=== PATIENT | male | born 1965 | race African-American/Black ===

== ENCOUNTER → 2016-12-17 | Emergency (ER) | payer BC ==
[~2016-12-17] MED LIST: CEFAZOLIN (PRE-DOCKED) 50 ML IVPB ONE; CEFAZOLIN 2 GM in DEXTROSE 5%-WATER - 50 ML IVPB ONE; IBUPROFEN 400 MG TABLET (FP) PO ONE; IBUPROFEN 600 MG TABLET (FP) PO ONE
--- NOTE | 2016-12-17 18:25 | PDOC ---
Rapid Medical Evaluation Medical Evaluation: Allergies Allergy/AdvReac Type Severity Reaction Status Date / Time No Known Allergies Allergy Verified 03/29/13 19:08 12/17/16 18:23 51 year old male with a history of HTN presents with right leg pain and swelling. Had outpatient u/s yesterday which was positive for DVT. Was placed on Xarelto by PCP. No chest pain or SOB. -To Main ED for further evaluation
[2016-12-17 18:27] VITALS: BP 132/85; PULSE 100; TEMP 98.1; BMI 30.1
[2016-12-17 19:49] LABS: BASOPHIL 0.9 % (0-2.0); EOSINOPHIL 2.7 % (0-4.5); MCH 29.3 pg (25.7-33.7); MCHC 33.4 g/dl (32.0-35.9); MEAN CELL VOLUME 87.8 fl (80-96); MEAN PLT VOLUME 8.3 fl (7.5-11.1); PLATELET COUNT 167 K/MM3 (134-434); RDW 13.2 % (11.9-15.9); WHITE BLOOD COUNT 11.4 K/mm3 (4.0-10.0)
--- NOTE | 2016-12-17 21:11 | PDOC ---
History of Present Illness - General History Source: Patient Exam Limitations: No Limitations - History of Present Illness Initial Comments: 12/17/16 21:29 Patient is a 51 year old male with a significant medical history of HTN who presents to the ED with right calf pain. Patient notes that he had right lower extremity US yesterday with a positive DVT and was placed on Xarelto. He states that he completed his second dose of Xarelto today. He notes that the pain has progressively worsened that is why he presented to the ED. 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 He denies fever, chills, nausea, vomiting, diarrhea or constipation. <Kenyatta Roque - Last Filed: 12/17/16 21:29> <Radha Bueno - Last Filed: 12/17/16 21:44> - General Chief Complaint: Pain Stated Complaint: BLOOD CLOT ON RT LEG Time Seen by Provider: 12/17/16 18:25 Past History <Kenyatta Roque - Last Filed: 12/17/16 21:29> - Past Medical History HTN: Yes - Immunization History TDAP Vaccination: No Immunization Up to Date: No - Psycho/Social/Smoking Cessation Hx Anxiety: No Suicidal Ideation: No Smoking Status: No Smoking History: Never smoked Have you smoked in the past 12 months: No Number of Cigarettes Smoked Daily: 0 Information on smoking cessation initiated: No Hx Alcohol Use: No Drug/Substance Use Hx: No Substance Use Type: None Hx Substance Use Treatment: No <Radha Bueno - Last Filed: 12/17/16 21:44> - Past Medical History Allergies/Adverse Reactions: Allergies Allergy/AdvReac Type Severity Reaction Status Date / Time No Known Allergies Allergy Verified 12/17/16 18:23 Home Medications: Ambulatory Orders Cephalexin Monohydrate [Keflex -] 500 mg PO Q6H #20 capsule 12/17/16 Lisinopril [Prinivil] 5 mg PO DAILY 12/17/16 Rivaroxaban [Xarelto -] 15 mg PO BID 12/17/16 Review of Systems - Review of Systems Able to Perform ROS?: Yes Comments:: 12/17/16 21:30 CONSTITUTIONAL: Absent: fever, chills, diaphoresis, generalized weakness, malaise, loss of appetite HEENT: Absent: rhinorrhea, nasal congestion, throat pain, throat swelling, difficulty swallowing, mouth swelling, ear pain, eye pain, visual Changes CARDIOVASCULAR: Absent: chest pain, syncope, palpitations, irregular heart rate, lightheadedness , peripheral edema RESPIRATORY: Absent: cough, shortness of breath, dyspnea with exertion, orthopnea, wheezing, stridor, hemoptysis GASTROINTESTINAL: Absent: abdominal pain, abdominal distension, nausea, vomiting, diarrhea, constipation, melena, hematochezia GENITOURINARY: Absent: dysuria, frequency, urgency, hesitancy, hematuria, flank pain, genital pain MUSCULOSKELETAL: Present: right calf pain. Absent: myalgia, arthralgia, joint swelling SKIN: Absent: rash, itching, pallor HEMATOLOGIC/IMMUNOLOGIC: Absent: easy bleeding, easy bruising, lymphadenopathy, frequent infections ENDOCRINE: Absent: unexplained weight gain, unexplained weight loss, heat intolerance, cold intolerance NEUROLOGIC: Absent: headache, focal weakness or paresthesias, dizziness, unsteady gait, seizure, mental status changes, bladder or bowel incontinence PSYCHIATRIC: Absent: anxiety, depression, suicidal or homicidal ideation, hallucinations. <Kenyatta Roque - Last Filed: 12/17/16 21:29> *Physical Exam - Vital Signs Last Vital Signs Temp Pulse Resp BP Pulse Ox 98.1 F 100 H 20 132/85 97 12/17/16 18:24 12/17/16 18:24 12/17/16 18:24 12/17/16 18:24 12/17/16 18:24 - Physical Exam Comments: 12/17/16 21:30 GENERAL: Well developed, well nourished. Awake and alert. No acute distress. HEENT: Normocephalic, atraumatic. PERRLA, EOMI. No conjunctival pallor. Sclera are non- icteric. Moist mucous membranes. Oropharynx is clear. NECK: Supple. Full ROM. No JVD. Carotid pulses 2+ and symmetric, without bruits. No thyromegaly. No lymphadenopathy. CARDIOVASCULAR: Regular rate and rhythm. No murmurs, rubs, or gallops. Distal pulses are 2+ and symmetric. PULMONARY: No evidence of respiratory distress. Lungs clear to auscultation bilaterally. No wheezing, rales or rhonchi. ABDOMINAL: Soft. Non-tender. Non-distended. No rebound or guarding. No organomegaly. Normoactive bowel sounds. MUSCULOSKELETAL Normal range of motion at all joints. No bony deformities or tenderness. No CVA tenderness. EXTREMITIES: +Increasing pain over DVT, warm to touch. No cyanosis. No clubbing. No edema. SKIN: Warm and dry. Normal capillary refill. No rashes. No jaundice. NEUROLOGICAL: Alert, awake, appropriate. Cranial nerves 2-12 intact. No deficits to light touch and temperature in face, upper extremities and lower extremities. No motor deficits in the in face, upper extremities and lower extremities. Normoreflexic in the upper and lower extremities. Normal speech. PSYCHIATRIC: Cooperative. Good eye contact. Appropriate mood and affect. <Kenyatta Roque - Last Filed: 12/17/16 21:29> - Vital Signs Last Vital Signs Temp Pulse Resp BP Pulse Ox 98.1 F 100 H 20 132/85 97 12/17/16 18:24 12/17/16 18:24 12/17/16 18:24 12/17/16 18:24 12/17/16 18:24 <Radha Bueno - Last Filed: 12/17/16 21:44> ED Treatment Course - LABORATORY CBC & Chemistry Diagram: 12/17/16 19:43 12/17/16 19:40 - ADDITIONAL ORDERS Additional order review: Laboratory Results 12/17/16 19:40 Sodium Cancelled Potassium Cancelled Chloride Cancelled Carbon Dioxide Cancelled Anion Gap Cancelled BUN Cancelled Creatinine Cancelled Creat Clearance w eGFR Cancelled Random Glucose Cancelled Calcium Cancelled Total Bilirubin Cancelled AST Cancelled ALT Cancelled Alkaline Phosphatase Cancelled Total Protein Cancelled Albumin Cancelled 12/17/16 19:43 RBC 5.24 MCV 87.8 MCHC 33.4 RDW 13.2 MPV 8.3 Neutrophils % 54.0 D Lymphocytes % 31.2 D Monocytes % 11.2 H Eosinophils % 2.7 D Basophils % 0.9 - Medications Given in the ED: ED Medications Discontinued Medications Generic Name Dose Route Start Last Admin Trade Name Freq PRN Reason Stop Dose Admin Cefazolin Sodium 2 gm/ 50 mls @ 100 mls/hr 12/17/16 19:31 12/17/16 19:49 Dextrose IVPB 12/17/16 20:00 100 mls/hr ONCE ONE Administration <Kenyatta Roque - Last Filed: 12/17/16 21:29> - LABORATORY CBC & Chemistry Diagram: 12/17/16 19:43 12/17/16 20:15 - ADDITIONAL ORDERS Additional order review: Laboratory Results 12/17/16 19:40 Sodium Cancelled Potassium Cancelled Chloride Cancelled Carbon Dioxide Cancelled Anion Gap Cancelled BUN Cancelled Creatinine Cancelled Creat Clearance w eGFR Cancelled Random Glucose Cancelled Calcium Cancelled Total Bilirubin Cancelled AST Cancelled ALT Cancelled Alkaline Phosphatase Cancelled Total Protein Cancelled Albumin Cancelled 12/17/16 19:43 RBC 5.24 MCV 87.8 MCHC 33.4 RDW 13.2 MPV 8.3 Neutrophils % 54.0 D Lymphocytes % 31.2 D Monocytes % 11.2 H Eosinophils % 2.7 D Basophils % 0.9 - Medications Given in the ED: ED Medications Discontinued Medications Generic Name Dose Route Start Last Admin Trade Name Freq PRN Reason Stop Dose Admin Cefazolin Sodium 2 gm/ 50 mls @ 100 mls/hr 12/17/16 19:31 12/17/16 19:49 Dextrose IVPB 12/17/16 20:00 100 mls/hr ONCE ONE Administration <Radha Bueno - Last Filed: 12/17/16 21:44> Medical Decision Making - Medical Decision Making 12/17/16 21:12 this 51 yo male was recently diagnosed with DVT in his rt leg and he has been taking xarelto for the clot -he came to the ER because he was concerned that his rt leg was hurting more that it had when he was diagnosed 2 days ago -he denies any recent trauma his PCP Dr Rahul West [facility] HTN -social -he states that 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 <Kenyatta Roque - Last Filed: 12/17/16 21:29> <Radha Bueno - Last Filed: 12/17/16 21:44> Diagnosis at time of Disposition: Right leg pain, History of DVT of lower extremity - Discharge Dispostion Disposition: HOME Condition at time of disposition: Stable - Prescriptions Prescriptions: Cephalexin Monohydrate [Keflex -] 500 mg PO Q6H #20 capsule - Referrals Referrals: STAFF,NOT ON [Primary Care Provider] - - Patient Instructions Printed Discharge Instructions: DI for Leg Pain, DI for Cellulitis -- Adult Additional Instructions: please continue to take your medication for your blood clot please pecan picker your prescription at [facility] follow up with your regular physician
[2016-12-17 21:31] LABS: ALBUMIN 3.5 g/dl (3.4-5.0); BILIRUBIN,TOTAL 0.3 mg/dL (0.2-1.0); CALCIUM 9.1 mg/dL (8.5-10.1); CREATININE 1.4 mg/dL (0.7-1.3); TOT PROT 7.2 g/dl (6.4-8.2)
== END | disposition home or self-care (01) ==
LOC: JER 18:17
DX: I82.401 Acute embolism and thrombosis of unspecified deep veins of right lower extremity (principal); Z79.01 Long term (current) use of anticoagulants; I10 Essential (primary) hypertension
CPT/HCPCS: 36415; 80053; 85025; 99283-25

== ENCOUNTER 2019-05-19 09:17 | Emergency (ER) | payer SELFPAY ==
[2019-05-19 09:24] VITALS: BP 145/87; PULSE 75; TEMP 98.2; BMI 27.8
--- NOTE | 2019-05-19 10:09 | PDOC ---
History of Present Illness - General Chief Complaint: Injury Stated Complaint: LACERATION ABOVE CHIN Time Seen by Provider: 05/19/19 09:28 History Source: Patient - History of Present Illness Occurred: reports: this morning Pain Location: reports: face Past History - Past Medical History Allergies/Adverse Reactions: Allergies Allergy/AdvReac Type Severity Reaction Status Date / Time No Known Allergies Allergy Verified 05/19/19 09:24 Home Medications: Ambulatory Orders Cephalexin Monohydrate [Keflex -] 500 mg PO Q6H #20 capsule 12/17/16 Lisinopril [Prinivil] 5 mg PO DAILY 12/17/16 Rivaroxaban [Xarelto -] 15 mg PO BID 12/17/16 Cephalexin [Keflex] 500 mg PO Q6H #28 capsule 05/19/19 COPD: No HTN: Yes - Immunization History TDAP Vaccination: No Immunization Up to Date: No - Suicide/Smoking/Psychosocial Hx Smoking Status: No Smoking History: Never smoked Have you smoked in the past 12 months: No Number of Cigarettes Smoked Daily: 0 Information on smoking cessation initiated: No Hx Alcohol Use: No Drug/Substance Use Hx: No Substance Use Type: None Hx Substance Use Treatment: No Review of Systems - Review of Systems Integumentary: Yes: Other (lacerations) *Physical Exam - Vital Signs Last Vital Signs Temp Pulse Resp BP Pulse Ox 98.2 F 75 19 145/87 100 05/19/19 09:21 05/19/19 09:21 05/19/19 09:21 05/19/19 09:21 05/19/19 09:21 - Physical Exam General Appearance: Yes: Appropriately Dressed. No: Apparent Distress HEENT: positive: Other (~1 cm mucosal lac to lower lip w/ ~3-4mm lac to chin crease, wound does not appear to go through and through, no vermilion border involvement). negative: Normal Voice Neck: positive: Supple Respiratory/Chest: negative: Respiratory Distress Integumentary: positive: Dry, Warm Neurologic: positive: Fully Oriented, Alert, Normal Mood/Affect Procedures - Laceration/Wound Repair Face Wound Length: to 2.5 cm Irrigated w/ Saline: Yes Betadine Prep: Yes Anesthesia: 1% Lidocaine Amount of Anesthetic (ccs): 6 Wound Repaired With: Sutures Suture Size/Type: other (intraoral lac repaired w/ 6 0 vicryl, chin lac reapired w/ 6 0 nylon) Number of Sutures: 7 (5 intra-oral lac, 2 chin lac) Sterile Dressing Applied: No Medical Decision Making - Medical Decision Making 05/19/19 12:04 53 yo M, no sig hx, here w/ facial injury s/p fall this am. Pt works as a security patrol officer and this morning while standing at a counter, he began falling asleep and lost his balance, striking her mouth against counter. No POOLE, dizziness, n/v or LOC see exam Lac repair Multiple lacs involving mucosal aspect of lower lip and to chin crease, no through and through lac -tetanus UTD -started on keflex given significant mucosal involvement -wound check in 2 days *DC/Admit/Observation/Transfer Diagnosis at time of Disposition: Lip laceration Qualifiers: Encounter type: initial encounter Qualified Code(s): S01.511A - Laceration without foreign body of lip, initial encounter - Discharge Dispostion Disposition: HOME Condition at time of disposition: Improved - Prescriptions Prescriptions: Cephalexin [Keflex] 500 mg PO Q6H #28 capsule - Referrals - Patient Instructions Printed Discharge Instructions: DI for Laceration Repair Additional Instructions: Regarding your intra-oral laceration, eat soft foods for 2-3 days and rinse the mouth with water after eating. Avoid spicy or salty foods until the wound is healed. Avoid use of straws. Return to the ED in 2 days for reassessment. Take antibiotics as directed. Regarding the laceration on your chin, keep dry for the next 24 hours after which you can let water run over wound. Stitches in your chin needs to be removed in 5 days - Post Discharge Activity Forms/Work/School Notes: Back to Work
== END 2019-05-19 10:00 | disposition home or self-care (01) ==
LOC: JERFT 09:17
PROC: 0HQ1XZZ Repair Face Skin, External Approach (ICD-10-PCS; principal; 2019-05-19)
PROC: 0CQ1XZZ Repair Lower Lip, External Approach (ICD-10-PCS; 2019-05-19)
DX: S01.511A Laceration without foreign body of lip, initial encounter (principal); S01.81XA Laceration without foreign body of other part of head, initial encounter; W18.39XA Other fall on same level, initial encounter; Y93.89 Activity, other specified; Y92.89 Other specified places as the place of occurrence of the external cause; Y99.0 Civilian activity done for income or pay
CPT/HCPCS: 99281-25

== ENCOUNTER 2019-05-24 08:44 | Emergency (ER) | payer SELFPAY ==
[2019-05-24 08:51] VITALS: BP 131/80; PULSE 71; TEMP 98.1; BMI 29.2
--- NOTE | 2019-05-24 09:29 | PDOC ---
Suture Removal/Wound Check HPI - History of Present Illness Chief Complaint: Suture/Staple Removal(Here) Stated Complaint: STITCHES REMOVAL Time Seen by Provider: 05/24/19 08:50 History Source: Yes: Patient Exam Limitations: Yes: No Limitations Treated at: [facility] ED - Previous ED Treatment Type of procedure performed on last visit: Yes: Laceration Repair Tetanus Immunization: Yes: Up to Date Past History - Travel Traveled outside of the country in the last 30 days: No Close contact w/someone who was outside of country & ill: No - Past Medical History Allergies/Adverse Reactions: Allergies Allergy/AdvReac Type Severity Reaction Status Date / Time No Known Allergies Allergy Verified 05/24/19 08:51 Home Medications: Ambulatory Orders Lisinopril [Prinivil] 5 mg PO DAILY 12/17/16 Rivaroxaban [Xarelto -] 15 mg PO BID 12/17/16 COPD: No HTN: Yes - Immunization History TDAP Vaccination: No Immunization Up to Date: No - Suicide/Smoking/Psychosocial Hx Smoking Status: No Smoking History: Never smoked Have you smoked in the past 12 months: No Number of Cigarettes Smoked Daily: 0 Information on smoking cessation initiated: No Hx Alcohol Use: No Drug/Substance Use Hx: No Substance Use Type: None Hx Substance Use Treatment: No Suture Removal/Wound Check PE - Physical Exam Laceration/Wound Check Symptoms: reports: None Current Severity Level: None Maximum Severity Level: None Pain Localization: None *Review of Systems - Review of Systems Able to Perform ROS?: Yes Constitutional: Yes: Symptoms Reported, See HPI, Malaise. No: Fever Respiratory: No: Symptoms reported Integumentary: Yes: Symptoms Reported, See HPI, Other (2 sutures to external area/ 1 remains= no complaints of pain or swelling ) Neurological: No: Symptoms reported All Other Systems: Reviewed and Negative *Physical Exam - Vital Signs Last Vital Signs Temp Pulse Resp BP Pulse Ox 98.1 F 71 18 131/80 100 05/24/19 08:50 05/24/19 08:50 05/24/19 08:50 05/24/19 08:50 05/24/19 08:50 - Physical Exam General Appearance: Yes: Nourished, Appropriately Dressed. No: Apparent Distress HEENT: positive: INÉS, Normal ENT Inspection, TMs Normal, Pharynx Normal, Other (inner gingival surface well approximated / no retained sutres noted ) Medical Decision Making - Medical Decision Making 05/24/19 15:20 One suture removed from sub-mental area= wound well approximated without redness swelling or evidence of dehiscence *DC/Admit/Observation/Transfer Diagnosis at time of Disposition: Visit for suture removal - Discharge Dispostion Disposition: HOME Condition at time of disposition: Stable Decision to Admit order: No - Referrals - Patient Instructions Printed Discharge Instructions: DI for Suture Removal - Post Discharge Activity
== END 2019-05-24 09:51 | disposition home or self-care (01) ==
LOC: JERFT 08:44
DX: Z48.817 Encounter for surgical aftercare following surgery on the skin and subcutaneous tissue (principal); Z48.02 Encounter for removal of sutures
CPT/HCPCS: 99281-25

== ENCOUNTER 2020-04-21 07:41 | Emergency (ER) | payer BC, OTHER ==
[2020-04-21 07:53] VITALS: BMI 29.4
--- NOTE | 2020-04-21 08:25 | PDOC ---
History of Present Illness - General Chief Complaint: Chest Pain Stated Complaint: CHEST PAIN Time Seen by Provider: 04/21/20 08:05 History Source: Patient Exam Limitations: No Limitations - History of Present Illness Initial Comments: 54M with hx/o HTN and DVT presents to the ED with left-sided CP on exertion with left arm radiation, unable to describe pain and lasted ~1hr. He had a short episode of CP a few days ago on exertion, otherwise has no hx/o CP. Denies associated diaphoresis, SOB, nausea, vomiting, lightheadedness, or abdominal pain. He has not had recent surgery or trauma. PMH: as in HPI SH: none Meds: Lisinopril Allergies: NKDA Tob/Etoh/Rec drugs: occasional cannabis ROS GENERAL/CONSTITUTIONAL: No fever or chills. No weakness HEENT: No change in vision. No sore throat CARDIOVASCULAR: +chest pain, no shortness of breath RESPIRATORY: No cough, wheezing, or hemoptysis GASTROINTESTINAL: No nausea, vomiting, diarrhea or constipation GENITOURINARY: No dysuria, frequency, or change in urination MUSCULOSKELETAL: No joint or muscle swelling or pain. No neck or back pain NEUROLOGIC: No headache, vertigo, loss of consciousness, or change in strength/sensation ENDOCRINE: No increased thirst. No abnormal weight change HEMATOLOGIC/LYMPHATIC: No anemia, easy bleeding; +history of blood clots ALLERGIC/IMMUNOLOGIC: No hives or skin allergy PE GENERAL: Awake, alert, and fully oriented, no acute distress HEAD: No signs of trauma, normocephalic, atraumatic EYES: PERRLA, EOMI, sclera anicteric, conjunctiva clear ENT: Auricles normal inspection, hearing grossly normal, nares patent, oropharynx clear without exudates. Moist mucosa NECK: Normal ROM, supple, no lymphadenopathy, JVD, or masses HEART: Regular rate and rhythm, normal S1 and S2, no murmurs, rubs or gallops, peripheral pulses normal and equal bilaterally CHEST WALL: no reproducible chest pain LUNGS: No distress, speaks full sentences, clear to auscultation bilaterally ABDOMEN: Soft, nontender, normoactive bowel sounds. No guarding, no rebound. No masses EXTREMITIES: Normal inspection, Normal range of motion, no edema. No clubbing or cyanosis NEUROLOGICAL: CNII-XII grossly intact. Normal speech, normal gait, no focal sensorimotor deficits SKIN: Warm, Dry, normal turgor, no rashes or lesions noted Assessment and Plan 1. R/o ACS - troponin, EKG, CXR, ASA 324mg 2. PE - low risk Well's Score, +PERC; d-dimer 3. Tension pneumo - low suspicion due to equal bilateral breath sounds Andrew Nava, PGY1 Emergency Medicine 04/21/20 13:21 Past History - Medical History Allergies/Adverse Reactions: Allergies Allergy/AdvReac Type Severity Reaction Status Date / Time No Known Allergies Allergy Verified 05/24/19 08:51 Home Medications: Ambulatory Orders Lisinopril [Prinivil] 5 mg PO DAILY 12/17/16 COPD: No HTN: Yes - Immunization History TDAP Vaccination: No Immunization Up to Date: No - Psycho-Social/Smoking History Smoking Status: No Smoking History: Never smoked Have you smoked in the past 12 months: No Number of Cigarettes Smoked Daily: 0 Information on smoking cessation initiated: No - Substance Abuse Hx (Audit-C & DAST Scrn) How often the patient has a drink containing alcohol: Never Score: In Men: 4 or > Positive; In Women: 3 or > Positive: 0 Screen Result (Pos requires Nsg. Audit-10AR): Negative *Physical Exam - Vital Signs Last Vital Signs Temp Pulse Resp BP Pulse Ox 98.1 F 84 17 141/76 99 04/21/20 07:49 04/21/20 07:49 04/21/20 07:49 04/21/20 07:49 04/21/20 07:49 Heart Score/ECG Review - History History: Highly suspicious - Age Age: 45-65 - Risk Factors Risk Factors Heart Score: Yes Hx Hypertension ED Treatment Course - LABORATORY CBC & Chemistry Diagram: 04/21/20 08:45 04/21/20 08:45 Medical Decision Making - Medical Decision Making 54M with hx/o HTN and DVT presents to the ED with left-sided CP on exertion with left arm radiation, without SOB, n/v, diaphoresis. Physical exam unremarkable. Differential includes but is not limited to [place], angina, PE, and tension pneumothorax. PE, unlikely with low risk Well's Score, but +PERC. D-dimer negative. CXR negative. CBC unremarkable. ACS r/o: first troponin negative. repeat troponin negative. EKG demonstrated regular rate, rhythm, and axis, without ST elevation/depression or T-wave abnormalities. Repeat EKG was consistent with the first. Unlikely currently ACS, however, may be atypical chest pain and patient was advised to follow up with cardiology. He reported feeling improved, and is stable for discharge at this time. Discharge - Discharge Information Problems reviewed: Yes Clinical Impression/Diagnosis: History of DVT of lower extremity Chest pain Qualifiers: Chest pain type: unspecified Qualified Code(s): R07.9 - Chest pain, unspecified Condition: Stable Disposition: HOME - Admission No - Follow up/Referral Referrals: Sergei Escamilla MD [Primary Care Provider] - Chente Dobbins MD [Staff Physician] - Joe Mehta MD [Staff Physician] - Jim Jonas MD [Staff Physician] - - Patient Discharge Instructions Patient Printed Discharge Instructions: DI for Atypical Chest Pain, DI for Chest Pain Additional Instructions: You came into the ED because of chest pain this morning. We did blood work, an electrocardiogram (EKG), and chest xray. The work up was negative and did not suggest the chest pain was cardiac in nature. Return to the ED if your chest pain worsens, continues with activity, or you feel nausea/vomiting, or sweating. Follow up with your PCP and a grab setter within a week. - Post Discharge Activity
[2020-04-21] MEDS ORDERED: ASPIRIN 81 MG CHEWABLE TABLETS PO ONE (08:26)
[2020-04-21] MEDS ORDERED: ASPIRIN 325 MG ENTERIC COATED TABLET (FP) ONE (08:34)
--- NOTE | 2020-04-21 08:41 | PDOC ---
Attending Attestation - Resident Resident Name: Andrew Nava - ED Attending Attestation I have performed the following: I have examined & evaluated the patient, The case was reviewed & discussed with the resident, I agree w/resident's findings & plan - HPI HPI: 04/21/20 08:40 54M with hx/o HTN and DVT presents to the ED with left-sided CP on exertion with left arm radiation?, after intercourse this morning at 5AM; unable to describe pain and lasted ~1hr. he states it occurs in his armpit, maybe with left inner arm pain that is separate. He had a short episode of CP a few days ago on exertion, otherwise has no hx/o CP. Denies associated diaphoresis, SOB, nausea, vomiting, lightheadedness, or abdominal pain. He has not had recent surgery or trauma. 04/21/20 13:39 04/21/20 13:41 - Physicial Exam PE: 04/21/20 08:40 Agree with the resident's HPI and PE as documented in the electronic medical record. NAD, well appearing, EOMI, PERRL, nl conjunctiva, anicteric; neck supple. lungs clear, RRR, abdomen soft nontender. no rebound, guarding. Back nontender. WORLEY x4, no focal neuro deficits. No peripheral edema. normal color for ethnicity, WWP. no calf tenderness. no reproducible chest tenderness 04/21/20 13:40 - Medical Decision Making 04/21/20 08:40 Vital Signs Temp Pulse Resp BP Pulse Ox 98.1 F 84 17 141/76 99 04/21/20 07:49 04/21/20 07:49 04/21/20 07:49 04/21/20 07:49 04/21/20 07:49 vitals reviewed, wnl DDx chest pain: ACS, coronary vasospasm, NSTEMI, arrhythmia, unstable angina, PE, dissection, PUD, esophageal spasm, GERD, gastritis, costochondritis, pneumonia, pleurisy, pericarditis/myocarditis. dehydration, electrolyte/metabolic derangements. Considered but clinically doubt based on HPI and PE: Low suspicion for pulmonary embolism or dissection. Interpreted by ED Physician: CXR (1 view): no acute abnormality: no infiltrates, bones appear intact and structures normal alignment, cardiac silhouette within normal limits. no free air under diaphragm, no pneumothorax. EKG normal sinus rhythm, no interval abnormalities, narrow QRS, ST and T wave segments and morphology normal. Nonspecific T wave abnormalities, unchanged from prior Chest pain HEART score 3 which denotes Low risk and probability for ACS, less than 1.7% risk for MACE at 4-6 wks dimer is neg, reassuring - unlikely PE trop neg x 2, rpt EKG is unchanged. NSR. remainder of labs and lytes wnl No evidence of ACS, pericarditis, myocarditis, pulmonary embolism, pneumothorax, pneumonia, Zoster, or esophageal perforation. Historically not abrupt in onset, tearing or ripping, pulses symmetric, no evidence of aortic dissection. Pt to be discharged in stable condition. Patient made aware of clinical impression, treatment recommendations and disposition plan, return precautions discussed (including but not limited to new or persistent/worsening symptoms, pain, fevers, or signs of infection, chest pain, respiratory distress, inability to tolerate oral intake, dehydration, syncope, or neurologic changes). Follow up with PMD and/or cards specialist as recommended, follow up information provided, take medications as instructed for duration of time. continue with supportive care, avoid triggers and precipitants. All questions answered to patient's satisfaction and expressed understanding and comfort with this. At the time of discharge, the patient is alert, clinically improved, tolerating po and verbalizes understanding of instructions, satisfied with the care received and felt comfortable with the plan. Patient does not suffer from an acute life- threatening medical condition at this time and is safe for outpatient follow- up. 04/21/20 08:41 04/21/20 13:36 04/21/20 13:41 Heart Score/ECG Review - History History: Slightly suspicious - Electrocardiogram EKG: Non specific repolarization disturbance - Age Age: 45-65 - Risk Factors Risk Factors Heart Score: Yes Hx Hypertension Based on the list above the patient has:: 1-2 risk factors - Troponin Troponin: </= normal limit - Score Heart Score - Total: 3 #1 ECG reviewed & interpreted by me at: 08:00 General ECG Interpretation: Sinus Rhythm, Normal Rate, Normal Intervals 04/21/20 08:41 EKG normal sinus rhythm 83 bpm, no interval abnormalities, narrow QRS, ST and T wave segments and morphology normal. Nonspecific T wave abnormalities with T wave inversions in lead III and flattening in aVF #2 ECG reviewed & interpreted by me at: 11:50 General ECG Interpretation: Sinus Rhythm, Normal Rate, Normal Intervals 04/21/20 13:38 EKG normal sinus rhythm at 67 bpm, no interval abnormalities, narrow QRS, ST and T wave segments and morphology normal. Nonspecific T wave abnormalities like TWI in III, flattening in AVF Discharge - Discharge Information Problems reviewed: Yes Clinical Impression/Diagnosis: History of DVT of lower extremity Chest pain Qualifiers: Chest pain type: unspecified Qualified Code(s): R07.9 - Chest pain, unspecified Condition: Stable Disposition: HOME - Admission No - Follow up/Referral Referrals: Joe Mehta MD [Staff Physician] - Sergei Escamilla MD [Primary Care Provider] - Chente Dobbins MD [Staff Physician] - - Patient Discharge Instructions Patient Printed Discharge Instructions: DI for Atypical Chest Pain, DI for Chest Pain Additional Instructions: You came into the ED because of chest pain this morning. We did blood work, an electrocardiogram (EKG), and chest xray. The work up was negative and did not suggest the chest pain was cardiac in nature. Return to the ED if your chest pain worsens, continues with activity, or you feel nausea/vomiting, or sweating. Follow up with your PCP and a it infrastructure manager within a week. - Post Discharge Activity
[2020-04-21 08:55] LABS: BASO % 0.4 % (0-2.0); EOS % 2.8 % (0-4.5); HEMATOCRIT 45.8 % (35.4-49); HEMOGLOBIN 15.4 GM/dL (11.7-16.9); LYMPH % 37.5 % (8-40); MCH 30.5 pg (25.7-33.7); MCHC 33.7 g/dl (32.0-35.9); MEAN CELL VOLUME 90.4 fl (80-96); MEAN PLT VOLUME 8.4 fl (7.5-11.1); NEUT % 49.3 % (42.8-82.8); PLATELET COUNT 171 K/MM3 (134-434); RBC 5.07 M/mm3 (4.00-5.60); RDW 13.5 % (11.9-15.9); WHITE BLOOD COUNT 8.9 K/mm3 (4.0-10.0)
[2020-04-21] MEDS ORDERED: ACETAMINOPHEN 1000 MG/100 ML VIAL (NON FORMULARY) IVPB ONE (08:58)
[2020-04-21 09:00] VITALS: PULSE 77
[2020-04-21] MEDS ORDERED: ACETAMINOPHEN INJECTION 100 ML IVPB ONE (09:15)
[2020-04-21 09:41] LABS: ALBUMIN 3.8 g/dl (3.4-5.0); ALK PHOS 67 U/L (45-117); ANION GAP 8 MMOL/L (8-16); BILIRUBIN,TOTAL 0.6 mg/dL (0.2-1); CALCIUM 9.5 mg/dL (8.5-10.1); CHLORIDE 108 mmol/L (98-107); CO2 26 mmol/L (21-32); CREATININE 1.3 mg/dL (0.55-1.3); GLUCOSE,RANDOM 114 mg/dL (74-106); POTASSIUM 3.8 mmol/L (3.5-5.1); SGOT/AST 22 U/L (15-37); SGPT/ALT 41 U/L (13-61); SODIUM 142 mmol/L (136-145); TOT PROT 7.3 g/dl (6.4-8.2)
--- NOTE | 2020-04-21 11:11 | EKG ---
Test Reason : Blood Pressure : / mmHG Vent. Rate : 083 BPM Atrial Rate : 083 BPM P-R Int : 178 ms QRS Dur : 092 ms QT Int : 372 ms P-R-T Axes : 027 005 003 degrees QTc Int : 437 ms NORMAL SINUS RHYTHM POSSIBLE ANTERIOR INFARCT , AGE UNDETERMINED ABNORMAL ECG Confirmed by JUSTINE GRAY MD ([id number]) on 04/21/2020 11:10:53 AM Referred By: Confirmed By:JUSTINE GRAY MD
[2020-04-21 14:06] VITALS: BP 133/90; TEMP 98.2
--- NOTE | 2020-04-21 15:29 | EKG ---
Test Reason : Blood Pressure : / mmHG Vent. Rate : 073 BPM Atrial Rate : 073 BPM P-R Int : 186 ms QRS Dur : 090 ms QT Int : 368 ms P-R-T Axes : 051 -04 -03 degrees QTc Int : 405 ms NORMAL SINUS RHYTHM MINIMAL VOLTAGE CRITERIA FOR LVH, MAY BE NORMAL VARIANT CANNOT RULE OUT SEPTAL INFARCT , AGE UNDETERMINED ABNORMAL ECG Confirmed by JUSTINE GRAY MD ([id number]) on 04/21/2020 3:29:25 PM Referred By: Confirmed By:JUSTINE GRAY MD
--- NOTE | 2020-04-23 17:37 | EKG ---
Test Reason : Blood Pressure : / mmHG Vent. Rate : 067 BPM Atrial Rate : 067 BPM P-R Int : 188 ms QRS Dur : 098 ms QT Int : 402 ms P-R-T Axes : 014 -03 -08 degrees QTc Int : 424 ms NORMAL SINUS RHYTHM POSSIBLE ANTERIOR INFARCT (CITED ON OR BEFORE 21-APR-2020) ABNORMAL ECG WHEN COMPARED WITH ECG OF 21-APR-2020 09:03, NO SIGNIFICANT CHANGE WAS FOUND Confirmed by MD Chasity, Zheng ([id number]) on 04/23/2020 5:36:54 PM Referred By: Confirmed By:Zheng Gaspar MD
== END 2020-04-21 14:07 | disposition home or self-care (01) ==
LOC: JER 07:41
PROC: 3E0333Z Introduction of Anti-inflammatory into Peripheral Vein, Percutaneous Approach (ICD-10-PCS; principal; 2020-04-21)
DX: R07.9 Chest pain, unspecified (principal)
CPT/HCPCS: 36415; 71045-TC-FY; 80053; 82550; 82553; 84484; 85025; 85379; 93005; 93010; 99285-25; J0131

== ENCOUNTER 2020-11-27 08:41 | Inpatient (IN) | payer BC, OTHER ==
[2020-11-27] MEDS ORDERED: DEXAMETHASONE SOD PHOSPHATE 4 MG/1 ML VIAL IVPUSH ONE (09:47)
[2020-11-27] MEDS ORDERED: DEXAMETHASONE SOD PHOSPHATE 10 MG/1 ML VIAL ONE (09:50)
[2020-11-27 10:49] LABS: VENOUS BASE EXCESS -1.7 mmol/L (-2-2); VENOUS O2 SATURATION 81.1 % (70-80); VENOUS PCO2 41.1 mmHg (38-52); VENOUS PH 7.374 (7.310-7.410)
[2020-11-27 10:51] LABS: BASO % 0.4 % (0-2.0); HEMATOCRIT 44.4 % (35.4-49); HEMOGLOBIN 15.2 GM/dL (11.7-16.9); LYMPH % 25.9 % (8-40); MCHC 34.2 g/dl (32.0-35.9); MEAN CELL VOLUME 87.6 fl (80-96); MEAN PLT VOLUME 8.5 fl (7.5-11.1); MONO % 10.4 % (3.8-10.2); NEUT % 63.3 % (42.8-82.8); PLATELET COUNT 148 K/MM3 (134-434); RBC 5.07 M/mm3 (4.00-5.60); RDW 13.2 % (11.9-15.9); WHITE BLOOD COUNT 6.7 K/mm3 (4.0-10.0)
[2020-11-27 11:00] LABS: INR 1.04 (0.83-1.09); PROTHROMBIN TIME (PATIENT) 12.6 SEC (9.7-13.0)
[2020-11-27 11:03] LABS: ACTIVATED PTT 31.7 SECONDS (25.2-36.5)
[2020-11-27 11:12] LABS: CHLORIDE 104 mmol/L (98-107); POTASSIUM 3.9 mmol/L (3.5-5.1); SODIUM 137 mmol/L (136-145)
[2020-11-27 11:16] LABS: ALBUMIN 3.6 g/dl (3.4-5.0); ANION GAP 8 MMOL/L (8-16); BLOOD UREA NITROGEN 16.9 mg/dL (7-18); CALCIUM 8.6 mg/dL (8.5-10.1); CO2 25 mmol/L (21-32); GLUCOSE,RANDOM 120 mg/dL (74-106)
[2020-11-27 11:19] LABS: BILIRUBIN,DIRECT 0.2 mg/dL (0.0-0.2); CREATININE 1.3 mg/dL (0.55-1.3); SGOT/AST 28 U/L (15-37); SGPT/ALT 37 U/L (13-61)
[2020-11-27 11:20] LABS: BILIRUBIN,TOTAL 0.8 mg/dL (0.2-1); LDH 263 U/L (87-246)
[2020-11-27 11:21] LABS: TOT PROT 7.5 g/dl (6.4-8.2)
[2020-11-27 11:22] LABS: ALK PHOS 65 U/L (45-117)
[2020-11-27] MEDS ORDERED: SODIUM CHLORIDE 1,000 ML IV SCH (12:00)
[2020-11-27] MEDS ORDERED: ENOXAPARIN NA (PORCINE) 60 MG/0.6 ML DISP.SYRIN SQ SCH (12:00)
[2020-11-27] MEDS ORDERED: guaiFENesin 200 MG/10 ML 10 ML UNIT-DOSE CUPS PO PRN (12:12)
[2020-11-27] MEDS ORDERED: ENOXAPARIN NA (PORCINE) 100 MG/1 ML DISP.SYRIN SQ ONE ×2 (12:24→22:54)
[2020-11-27] MEDS: ENOXAPARIN NA (PORCINE) 100 MG/1 ML DISP.SYRIN SQ SCH ×2 (12:28→23:12)
[2020-11-27 14:30] LABS: BLOOD UREA NITROGEN 13.8 mg/dL (7-18)
[2020-11-27 14:33] LABS: CREATININE 1.1 mg/dL (0.55-1.3)
[2020-11-27 18:19] LABS: EPI CELLS 5 /uL (0-25.1); HYALINE CASTS 3 /uL (0-3.1); URINE APPEARANCE CLEAR; URINE BACTERIA 94 /uL (0-1359); URINE BILIRUBIN NEGATIVE (NEGATIVE); URINE COLOR YELLOW; URINE GLUCOSE (UA) NEGATIVE (NEGATIVE); URINE KETONE NEGATIVE (NEGATIVE); URINE LEUK ESTERASE NEGATIVE (NEGATIVE); URINE NITRITE NEGATIVE (NEGATIVE); URINE PROTEIN 1+ (NEGATIVE); URINE RBC 41 /uL (0-23.9); URINE UROBILINOGEN 0.2 mg/dL (0.2-1.0); URINE WBC 8 /uL (0-25.8)
[2020-11-28 02:12] VITALS: BMI 29.4
[2020-11-28] MEDS: ENOXAPARIN NA (PORCINE) 100 MG/1 ML DISP.SYRIN SQ SCH ×2 (09:37→21:37)
[2020-11-28] MEDS: ZINC SULFATE 220 MG CAPSULE (FP) PO SCH (09:37)
[2020-11-28] MEDS: ASCORBIC ACID 500 MG TABLET (FP) PO SCH (09:37)
[2020-11-28] MEDS: DEXAMETHASONE SOD PHOSPHATE 10 MG/1 ML VIAL IVPUSH SCH (09:37)
[2020-11-28] MEDS: CHOLECALCIFEROL (VIT D3) 1,000 UNIT (25 MCG) TABLET PO SCH (09:37)
[2020-11-28] MEDS: FAMOTIDINE 20 MG TABLET PO SCH (09:38)
[2020-11-28 10:30] LABS: BASO % 0.1 % (0-2.0); HEMATOCRIT 42.6 % (35.4-49); HEMOGLOBIN 14.6 GM/dL (11.7-16.9); LYMPH % 17.2 % (8-40); MCH 30.1 pg (25.7-33.7); MCHC 34.3 g/dl (32.0-35.9); MEAN PLT VOLUME 8.2 fl (7.5-11.1); MONO % 5.3 % (3.8-10.2); NEUT % 77.4 % (42.8-82.8); PLATELET COUNT 151 K/MM3 (134-434); RBC 4.84 M/mm3 (4.00-5.60); RDW 13.6 % (11.9-15.9); WHITE BLOOD COUNT 10.7 K/mm3 (4.0-10.0)
[2020-11-28 10:54] LABS: ALBUMIN 3.2 g/dl (3.4-5.0); BLOOD UREA NITROGEN 21.4 mg/dL (7-18); CALCIUM 8.4 mg/dL (8.5-10.1)
[2020-11-28 10:57] LABS: CREATININE 1.4 mg/dL (0.55-1.3); PHOSPHOROUS 1.6 mg/dL (2.5-4.9)
[2020-11-28 10:59] LABS: BILIRUBIN,TOTAL 0.5 mg/dL (0.2-1); TOT PROT 7.3 g/dl (6.4-8.2)
[2020-11-28] MEDS ORDERED: REMDESIVIR 200 MG in SODIUM CHLORIDE 210 ML IVPB ONE (12:00)
[2020-11-28] MEDS ORDERED: NAPH,MB-DB/K PH,MBDB POWDER PACKET PO ONE (12:11)
[2020-11-28] MEDS ORDERED: ACETAMINOPHEN 325 MG TABLET (FP) PO PRN (15:21)
[2020-11-28] MEDS: SODIUM CHLORIDE 1,000 ML IV SCH (16:18)
[2020-11-29 09:48] LABS: POTASSIUM 4.2 mmol/L (3.5-5.1)
[2020-11-29 10:29] LABS: ALBUMIN 2.9 g/dl (3.4-5.0); CALCIUM 8.1 mg/dL (8.5-10.1); MAGNESIUM 2.1 mg/dL (1.8-2.4)
[2020-11-29 10:32] LABS: CREATININE 1.3 mg/dL (0.55-1.3); PHOSPHOROUS 2.6 mg/dL (2.5-4.9)
[2020-11-29 10:34] LABS: BILIRUBIN,TOTAL 0.5 mg/dL (0.2-1); TOT PROT 6.6 g/dl (6.4-8.2)
[2020-11-29] MEDS: DEXAMETHASONE SOD PHOSPHATE 10 MG/1 ML VIAL IVPUSH SCH (10:46)
[2020-11-29] MEDS: ENOXAPARIN NA (PORCINE) 100 MG/1 ML DISP.SYRIN SQ SCH (11:09)
[2020-11-29] MEDS: ASCORBIC ACID 500 MG TABLET (FP) PO SCH (11:09)
[2020-11-29] MEDS: CHOLECALCIFEROL (VIT D3) 1,000 UNIT (25 MCG) TABLET PO SCH (11:10)
[2020-11-29] MEDS: ZINC SULFATE 220 MG CAPSULE (FP) PO SCH (11:10)
[2020-11-29] MEDS: FAMOTIDINE 20 MG TABLET PO SCH (11:10)
[2020-11-29] MEDS ORDERED: REMDESIVIR 100 MG in SODIUM CHLORIDE 230 ML IVPB SCH (12:00)
[2020-11-29] MEDS: SODIUM CHLORIDE 1,000 ML IV SCH (12:30)
[2020-11-30 09:27] LABS: BASO % 0.1 % (0-2.0); HEMATOCRIT 41.4 % (35.4-49); HEMOGLOBIN 14.1 GM/dL (11.7-16.9); LYMPH % 14.8 % (8-40); MCH 30.2 pg (25.7-33.7); MCHC 34.2 g/dl (32.0-35.9); MEAN CELL VOLUME 88.4 fl (80-96); MEAN PLT VOLUME 8.3 fl (7.5-11.1); MONO % 8.3 % (3.8-10.2); NEUT % 76.8 % (42.8-82.8); PLATELET COUNT 197 K/MM3 (134-434); RBC 4.68 M/mm3 (4.00-5.60); RDW 13.5 % (11.9-15.9); WHITE BLOOD COUNT 9.2 K/mm3 (4.0-10.0)
[2020-11-30 09:53] LABS: ALBUMIN 2.8 g/dl (3.4-5.0); CALCIUM 8.3 mg/dL (8.5-10.1); MAGNESIUM 2.3 mg/dL (1.8-2.4)
[2020-11-30 09:56] LABS: CREATININE 1.1 mg/dL (0.55-1.3)
[2020-11-30 09:57] LABS: PHOSPHOROUS 2.4 mg/dL (2.5-4.9)
[2020-11-30 09:58] LABS: BILIRUBIN,TOTAL 0.5 mg/dL (0.2-1); TOT PROT 6.5 g/dl (6.4-8.2)
[2020-11-30] MEDS: ZINC SULFATE 220 MG CAPSULE (FP) PO SCH (09:58)
[2020-11-30] MEDS: ASCORBIC ACID 500 MG TABLET (FP) PO SCH (09:58)
[2020-11-30] MEDS: CHOLECALCIFEROL (VIT D3) 1,000 UNIT (25 MCG) TABLET PO SCH (09:58)
[2020-11-30] MEDS: FAMOTIDINE 20 MG TABLET PO SCH (09:58)
[2020-11-30] MEDS: DEXAMETHASONE SOD PHOSPHATE 10 MG/1 ML VIAL IVPUSH SCH (09:59)
[2020-11-30] MEDS ORDERED: ENOXAPARIN NA (PORCINE) 40 MG/0.4 ML DISP.SYRIN SQ SCH (10:00)
[2020-11-30] MEDS ORDERED: PT OWN MED DRAWER 7, Y5N ONE (12:05)
[2020-11-30 13:32] VITALS: BP 131/86; PULSE 71; TEMP 97.5
== END 2020-11-30 22:00 | disposition home or self-care (01) | DRG 177 ==
LOC: JER 08:41 → JERBED 11:29 → J6S 11-28 01:16
PROVIDERS: ADMIT Internal Medicine; ATTEND Student in an Organized Health Care Education/Training Program
PROC: XW033E5 Introduction of Remdesivir Anti-infective into Peripheral Vein, Percutaneous Approach, New Technology Group 5 (ICD-10-PCS; principal; 2020-11-28)
DX: U07.1 COVID-19 (principal); J12.82 Pneumonia due to coronavirus disease 2019; N17.9 Acute kidney failure, unspecified; I10 Essential (primary) hypertension; E66.9 Obesity, unspecified; Z68.29 Body mass index [BMI] 29.0-29.9, adult
CPT/HCPCS: 36415; 71045-TC-FY; 80048; 80053; 81003; 82248; 82550; 82553; 82728; 82803; 83605; 83615; 83735; 84100; 84484; 85025; 85379; 85610; 85730; 86140; 87040; 87086; 87804; 93005; 93010; 94761; 99285-25; C9399; C9803; J1100; U0003

== ENCOUNTER 2021-03-17 11:06 | Emergency (ER) | payer BC ==
[2021-03-17 11:11] VITALS: PULSE 93; TEMP 98.4; BMI 31.1
[2021-03-17] MEDS ORDERED: KETOROLAC TROMETHAMINE 30 MG/1 ML VIAL IM ONE (12:06)
[2021-03-17] MEDS ORDERED: KETOROLAC TROMETHAMINE 30 MG/1 ML VIAL ONE (12:33)
[2021-03-17 13:45] VITALS: BP 139/100
== END 2021-03-17 13:47 | disposition home or self-care (01) ==
LOC: JER 11:06
PROC: 3E0233Z Introduction of Anti-inflammatory into Muscle, Percutaneous Approach (ICD-10-PCS; principal; 2021-03-17)
DX: M10.9 Gout, unspecified (principal)
CPT/HCPCS: 73562-TC-LT-FY; 99284-25

== ENCOUNTER 2024-05-23 15:14 | Emergency (ER) | payer BC ==
[2024-05-23 15:34] VITALS: BP 149/90; PULSE 87; RESP 17; TEMP 98.3; BMI 30.7
[2024-05-23] MEDS ORDERED: predniSONE 20 MG TABLET (UD) ONE (16:12)
[2024-05-23] MEDS ORDERED: COLCHICINE 0.6 MG TAB ONE (16:15)
[2024-05-23] MEDS: SODIUM CHLORIDE 0.9% 500 ML INFUS.BAG IV ONE (16:27)
[2024-05-23] MEDS: predniSONE 20 MG TABLET (UD) PO ONE (16:27)
[2024-05-23] MEDS: COLCHICINE 0.6 MG CAP PO ONE (16:27)
[2024-05-23 17:37] LABS: HIV INTERPRETATION NEGATIVE (NEGATIVE)
== END 2024-05-23 17:28 | disposition home or self-care (01) ==
LOC: JERFT 15:14
DX: M10.9 Gout, unspecified (principal); M25.561 Pain in right knee; M25.571 Pain in right ankle and joints of right foot
CPT/HCPCS: 36415; 86803; 87389; 99283-25